=== PATIENT | male | born 1950 | race Caucasian/White ===

== ENCOUNTER 2018-11-08 18:59 | Emergency (ER) | payer MEDICARE ==
[2018-11-08] MEDS ORDERED: ONDANSETRON 4 MG/2 ML VIAL IVP ONE (19:00)
[2018-11-08] MEDS ORDERED: NS(*) 0.9% 1000 ML BAG 1,000 ML IV ONE ×3 (19:00→20:25)
[2018-11-08] MEDS ORDERED: fentaNYL CITR 100 MCG/2 ML AMP IVP ONE ×3 (19:00→22:45)
--- NOTE | 2018-11-08 19:11 | ER Report ---
History and Physical Time Seen By MD: 19:01 (SOTERO NESS TELECOMMUNICATIONS LINE INSTALLER-BC) HPI/ROS CHIEF COMPLAINT: Abdominal pain HISTORY OF PRESENT ILLNESS: This is a 68-year-old male presents to the emergency department via EMS for abdominal pain. 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 Estimated time down was 3 hours. Upon arrival EMS states that the patient was diffusely tender through the abdomen, they did attempt to give him pain medications he declined he did vomit, gave him 4 mg IV Zofran. Patient arrives ashen in color, holding his right upper quadrant, patient does interact and answer questions when prompted. He did consume some hard-boiled eggs around noon today. No bloody or black colored stools. No fevers or chills. No headaches or rashes. No chest pain. No shortness of breath. REVIEW OF SYSTEMS: Constitutional: No fever, no chills. Eyes: No discharge. ENT: No sore throat. Cardiovascular: No chest pain, no palpitations. Respiratory: No cough, no shortness of breath. Gastrointestinal: As above. Genitourinary: No hematuria. Musculoskeletal: No back pain. Skin: No rashes. Neurological: No headache. (SOTERO NESSP-) Allergies: Coded Allergies: No Known Drug Allergies (Unverified , 11/08/18) Home Meds Reported Medications Iron Polysaccharides Complex (FERREX 150) 150 Mg Capsule, 150 MG PO, CAPSULE 11/08/18 Lisinopril (LISINOPRIL) 10 Mg Tablet, 10 MG PO QDAY, TAB 11/08/18 Potassium Chloride (POTASSIUM CHLORIDE) 10 Meq Tab.er.prt, 10 MEQ PO QDAY 11/08/18 Furosemide (LASIX) 40 Mg Tablet, 1 TAB PO DAILY, TAB 11/08/18 Naproxen (NAPROXEN) 500 Mg Tablet, 500 MG PO BID, TAB 11/08/18 Metformin Hcl (METFORMIN HCL) 500 Mg Tablet, 2 TAB PO BID, TAB 11/08/18 Glimepiride (GLIMEPIRIDE) 2 Mg Tablet, 2 MG PO QDAY 11/08/18 Tamsulosin Hcl (TAMSULOSIN HCL) 0.4 Mg Cap.er.24h, 0.4 MG PO, CAP 11/08/18 Pioglitazone Hcl (ACTOS) 30 Mg Tablet, 30 MG PO QDAY 11/08/18 Past Medical/Surgical History The patient has a past medical and surgical history of type II diabetes, knee replacement, iron deficiency anemia, morbidly obese, hypertension. (SOTERO NESSP-BC) Reviewed Nurses Notes: Yes (SOTERO NESS TELECOMMUNICATIONS LINE INSTALLER-BC) Constitutional Vital Sign - Last 24 Hours 11/08/18 11/08/18 11/08/18 11/08/18 18:59 19:00 19:00 19:04 Temp 97.4 Pulse 101 101 104 Resp 50 16 72 B/P (MAP) ???/??? (6057) 79/65 Pulse Ox 99 93 O2 Delivery Nasal Cannula 11/08/18 11/08/18 11/08/18 11/08/18 19:09 19:10 19:10 19:13 Pulse 101 Resp 24 B/P (MAP) 71/48 (56) 70/45 (53) Pulse Ox 94 O2 Flow Rate 3.0 11/08/18 11/08/18 11/08/18 11/08/18 19:14 19:15 19:19 19:20 Pulse 118 ??? Resp 16 B/P (MAP) 80/42 (55) ???/??? (1704) Pulse Ox 69 11/08/18 11/08/18 11/08/18 11/08/18 19:24 19:29 19:30 19:34 Pulse ? 112 Resp 13 B/P (MAP) 135/59 (84) Pulse Ox 89 O2 Delivery Nasal Cannula O2 Flow Rate 2 11/08/18 11/08/18 11/08/18 11/08/18 19:39 19:40 19:44 19:49 Pulse 117 119 118 Resp 31 29 28 B/P (MAP) 113/86 (95) Pulse Ox 91 99 88 11/08/18 11/08/18 11/08/18 11/08/18 19:50 19:52 19:54 19:55 Pulse 116 Resp 20 B/P (MAP) 120/24 (56) 109/58 (75) 88/59 (69) Pulse Ox 94 12/15/18 11/08/18 11/08/18 11/08/18 19:59 20:00 20:04 20:05 Pulse 113 112 Resp 17 23 B/P (MAP) 115/62 (79) 107/52 (70) Pulse Ox 97 99 11/08/18 11/08/18 11/08/18 11/08/18 20:10 20:15 20:20 20:25 Pulse 117 112 Resp 16 13 B/P (MAP) 125/70 (88) 133/70 (91) 120/68 (85) 125/63 (83) Pulse Ox 97 96 11/08/18 11/08/18 11/08/18 11/08/18 20:30 20:35 20:40 20:55 Pulse 107 108 Resp 19 29 B/P (MAP) 112/67 (82) 129/57 (81) 137/56 (83) Pulse Ox 97 96 11/08/18 11/08/18 11/08/18 11/08/18 21:00 21:05 21:10 21:11 Pulse 106 107 Resp 28 27 B/P (MAP) 105/64 (78) 98/74 (82) 77/61 (66) 102/66 (78) Pulse Ox 98 96 11/08/18 11/08/18 11/08/18 11/08/18 21:15 21:20 21:25 21:30 Temp 99.1 Pulse 107 102 103 106 Resp 13 23 12 19 B/P (MAP) 115/91 (99) 113/79 (90) 123/59 (80) 82/55 (64) Pulse Ox 96 96 96 94 11/08/18 11/08/18 11/08/18 11/08/18 21:35 21:40 21:45 21:50 Pulse 100 102 103 107 Resp 32 34 31 B/P (MAP) 117/71 (86) 103/64 (77) 107/64 (78) ???/??? (5488) Pulse Ox 96 97 96 95 11/08/18 11/08/18 11/08/18 11/08/18 21:55 22:00 22:05 22:10 Temp 99.5 Pulse 105 104 108 112 B/P (MAP) 121/65 (83) 108/75 (86) 120/57 (78) 132/62 (85) Pulse Ox 96 97 97 94 11/08/18 11/08/18 11/08/18 11/08/18 22:15 22:20 22:25 22:30 Pulse 108 107 103 107 Resp 30 30 29 34 B/P (MAP) 112/87 (95) 124/68 (86) 128/77 (94) 106/74 (85) Pulse Ox 93 94 94 95 11/08/18 11/08/18 11/08/18 11/08/18 22:35 22:40 22:44 22:45 Pulse 109 112 110 Resp 52 38 27 B/P (MAP) 114/67 (83) 80/34 (49) 74/23 (40) Pulse Ox 95 92 95 11/08/18 22:47 B/P (MAP) 98/73 (81) (BUCKY HEARD DO) Physical Exam General Appearance: The patient is alert, has no immediate need for airway protection and no signs of toxicity, holding right upper quadrant, ashen in color. Eyes: Pupils equal and round no pallor or injection. ENT, Mouth: Mucous membranes are dry. Respiratory: There are no retractions, lungs are clear to auscultation. Cardiovascular: Regular rate and rhythm, no murmurs, clicks or rubs. Gastrointestinal: Abdomen is obese, painful to light palpation to the right upper and left upper quadrants and epigastrium, no pulsations, very distant and faint bowel sounds, no abdominal bruits. Neurological: Alert and oriented 4. Moving all x-ray studies. Following all commands. No focal neurologic deficits. Skin: Warm and dry, no rashes. Musculoskeletal: Neck is supple non tender. Extremities are nontender, nonswollen and have full range of motion. [ ] DIFFERENTIAL DIAGNOSIS: After history and physical exam differential diagnosis was considered for abdominal pain including but not limited to appendicitis, cholecystitis, AAA, ischemic bowel, gastritis and urinary tract infection. (SOTERO NESS-) Medical Decision Making Data Points Result Diagram: 11/08/18191011/08/181910 Laboratory Hematology Test 11/08/18 18:39 11/08/18 19:11 Urine Color Yellow Urine Clarity Clear Urine pH 5.0 pH (4.8-9.5) Urine Specific [place] 1.013 Urine Protein Negative mg/dL (NEGATIVE) Urine Glucose (UA) Negative mg/dL (NEGATIVE) Urine Ketones Negative mg/dL (NEGATIVE) Urine Blood Negative (NEGATIVE) Urine Nitrite Negative (NEGATIVE) Urine Bilirubin Negative (NEGATIVE) Urine Urobilinogen Negative mg/dL (0.2-1.9) Urine Leukocyte Esterase Negative (NEGATIVE) Urine RBC 1 /HPF (0-2/HPF) Urine WBC <1 /HPF (0-5/HPF) Urine Squamous Epithelial Cells None /LPF (NONE-FEW) Urine Bacteria Negative /HPF (NONE-FEW) Urine Mucus None /HPF (NONE-FEW) Red Blood Count 2.25 M/uL (4.00-5.60) Mean Corpuscular Volume 85.1 fL (80.0-96.0) Mean Corpuscular Hemoglobin 27.1 pg (26.0-33.0) Mean Corpuscular Hemoglobin Concent 31.9 g/dL (32.0-36.0) Red Cell Distribution Width 18.0 % (11.5-14.5) Mean Platelet Volume 10.9 fL (7.2-11.1) Neutrophils (%) (Auto) 82.2 % (39.4-72.5) Lymphocytes (%) (Auto) 12.6 % (17.6-49.6) Monocytes (%) (Auto) 4.3 % (4.1-12.4) Eosinophils (%) (Auto) 0.5 % (0.4-6.7) Basophils (%) (Auto) 0.4 % (0.3-1.4) Nucleated RBC Relative Count (auto) 0.0 /100WBC Neutrophils # (Auto) 6.8 K/uL (2.0-7.4) Lymphocytes # (Auto) 1.0 K/uL (1.3-3.6) Monocytes # (Auto) 0.4 K/uL (0.3-1.0) Eosinophils # (Auto) 0.0 K/uL (0.0-0.5) Basophils # (Auto) 0.0 K/uL (0.0-0.1) Nucleated RBC Absolute Count (auto) 0.00 K/uL Prothrombin Time 16.0 seconds (12.0-14.4) Prothromb Time International Ratio 1.27 Activated Partial Thromboplast Time 25 seconds (23-35) Sodium Level 135 mmol/L (137-145) Potassium Level 4.4 mmol/L (3.5-5.0) Chloride Level 107 mmol/L (98-107) Carbon Dioxide Level 13 mmol/L (22-30) Blood Urea Nitrogen 16 mg/dl (9-21) Creatinine 1.10 mg/dl (0.66-1.25) Glomerular Filtration Rate Calc > 60.0 Random Glucose 243 mg/dl (75-110) Lactate 10.2 mmol/L (0.7-2.1) Calcium Level 7.8 mg/dl (8.4-10.2) Total Bilirubin 0.4 mg/dl (0.2-1.3) Aspartate Amino Transf (AST/SGOT) 22 U/L (0-35) Alanine Aminotransferase (ALT/SGPT) 36 U/L (0-56) Alkaline Phosphatase 49 U/L (0-126) Troponin I < 0.012 ng/ml Total Protein 4.1 g/dl (6.3-8.2) Albumin 2.1 g/dl (3.5-5.0) Lipase 169 U/L (23-300) Helicobacter pylori IgG Antibody Positive (NEGATIVE) Chemistry Test 11/08/18 18:39 11/08/18 19:11 Urine Color Yellow Urine Clarity Clear Urine pH 5.0 pH (4.8-9.5) Urine Specific [place] 1.013 Urine Protein Negative mg/dL (NEGATIVE) Urine Glucose (UA) Negative mg/dL (NEGATIVE) Urine Ketones Negative mg/dL (NEGATIVE) Urine Blood Negative (NEGATIVE) Urine Nitrite Negative (NEGATIVE) Urine Bilirubin Negative (NEGATIVE) Urine Urobilinogen Negative mg/dL (0.2-1.9) Urine Leukocyte Esterase Negative (NEGATIVE) Urine RBC 1 /HPF (0-2/HPF) Urine WBC <1 /HPF (0-5/HPF) Urine Squamous Epithelial Cells None /LPF (NONE-FEW) Urine Bacteria Negative /HPF (NONE-FEW) Urine Mucus None /HPF (NONE-FEW) White Blood Count 8.3 k/uL (4.5-11.0) Red Blood Count 2.25 M/uL (4.00-5.60) Hemoglobin 6.1 g/dL (14.0-18.0) Hematocrit 19.2 % (42.0-52.0) Mean Corpuscular Volume 85.1 fL (80.0-96.0) Mean Corpuscular Hemoglobin 27.1 pg (26.0-33.0) Mean Corpuscular Hemoglobin Concent 31.9 g/dL (32.0-36.0) Red Cell Distribution Width 18.0 % (11.5-14.5) Platelet Count 124 K/uL (150-450) Mean Platelet Volume 10.9 fL (7.2-11.1) Neutrophils (%) (Auto) 82.2 % (39.4-72.5) Lymphocytes (%) (Auto) 12.6 % (17.6-49.6) Monocytes (%) (Auto) 4.3 % (4.1-12.4) Eosinophils (%) (Auto) 0.5 % (0.4-6.7) Basophils (%) (Auto) 0.4 % (0.3-1.4) Nucleated RBC Relative Count (auto) 0.0 /100WBC Neutrophils # (Auto) 6.8 K/uL (2.0-7.4) Lymphocytes # (Auto) 1.0 K/uL (1.3-3.6) Monocytes # (Auto) 0.4 K/uL (0.3-1.0) Eosinophils # (Auto) 0.0 K/uL (0.0-0.5) Basophils # (Auto) 0.0 K/uL (0.0-0.1) Nucleated RBC Absolute Count (auto) 0.00 K/uL Prothrombin Time 16.0 seconds (12.0-14.4) Prothromb Time International Ratio 1.27 Activated Partial Thromboplast Time 25 seconds (23-35) Glomerular Filtration Rate Calc > 60.0 Lactate 10.2 mmol/L (0.7-2.1) Calcium Level 7.8 mg/dl (8.4-10.2) Total Bilirubin 0.4 mg/dl (0.2-1.3) Aspartate Amino Transf (AST/SGOT) 22 U/L (0-35) Alanine Aminotransferase (ALT/SGPT) 36 U/L (0-56) Alkaline Phosphatase 49 U/L (0-126) Troponin I < 0.012 ng/ml Total Protein 4.1 g/dl (6.3-8.2) Albumin 2.1 g/dl (3.5-5.0) Lipase 169 U/L (23-300) Helicobacter pylori IgG Antibody Positive (NEGATIVE) Coagulation Test 11/08/18 19:11 Prothrombin Time 16.0 seconds Prothromb Time International Ratio 1.27 Activated Partial Thromboplast Time 25 seconds Urinalysis Test 11/08/18 18:39 Urine Color Yellow Urine Clarity Clear Urine pH 5.0 pH (4.8-9.5) Urine Specific [place] 1.013 Urine Protein Negative mg/dL (NEGATIVE) Urine Glucose (UA) Negative mg/dL (NEGATIVE) Urine Ketones Negative mg/dL (NEGATIVE) Urine Blood Negative (NEGATIVE) Urine Nitrite Negative (NEGATIVE) Urine Bilirubin Negative (NEGATIVE) Urine Urobilinogen Negative mg/dL (0.2-1.9) Urine Leukocyte Esterase Negative (NEGATIVE) Urine RBC 1 /HPF (0-2/HPF) Urine WBC <1 /HPF (0-5/HPF) Urine Squamous Epithelial Cells None /LPF (NONE-FEW) Urine Bacteria Negative /HPF (NONE-FEW) Urine Mucus None /HPF (NONE-FEW) (BUCKY HEARD DO) Microbiology Microbiology Date/Time Source Procedure Growth Status 11/08/18 20:04 Blood Peripheral Draw Blood Culture - Final Resulted 11/08/18 20:04 Blood Peripheral Draw Blood Culture - Preliminary Resulted 11/08/18 19:55 Blood Peripheral Draw Blood Culture - Preliminary NO GROWTH AFTER 1 DAY, REINCUBATED Resulted (BUCKY HEARD DO) EKG/Imaging EKG Interpretation 12 lead EKG: Rhythm: Sinus tachycardia, ventricular rate 101 bpm. [place]: normal QRS: normal ST segments: Peak T-wave in V2, flattening T wave in lead 3, no ST elevation or depression identified. No previous EKGs for comparison. Imaging Examination: CTA CHEST ABD PEL W CONT Comparison: None. History: Severe abdominal pain. Procedure: Arterial phase imaging of the chest, abdomen, and pelvis with 120 mL intravenous Isovue 370. Reconstruction of the source data set includes multiplanar 2D in the sagittal and coronal planes, and 3D reconstructed coronal slab MIP series. One of the following dose optimization techniques was utilized in the performance of this exam: Automated exposure control; adjustment of the mA and/or kV according to the patient's size; or use of an iterative reconstruction technique. Specific details can be referenced in the facility's radiology CT exam operational policy. Findings: CTA: Cardiac chambers: Negative. Thoracic aorta: Negative. Aortic arch vessels: Negative. Main pulmonary artery: Negative. Abdominal aorta: Minimal calcified atherosclerotic plaque along the distal abdominal aorta. Otherwise negative. Celiac artery, superior mesenteric artery, and inferior mesenteric artery: Negative. Renal arteries: Single main renal arteries bilaterally with minimal atherosclerotic plaque at the origin of the right main renal artery. Otherwise negative. Right iliac arteries: Minimal atherosclerosis along the internal iliac artery. Otherwise negative. Left iliac arteries: Negative. CT chest: Mediastinum: Mild coronary calcifications. No pericardial effusion. Lymph nodes: Negative. Lungs and airways: Mild atelectasis. Right lower lobe 3 mm nodule. No consolidation. No pneumothorax, edema, or effusion. Diaphragm: Negative. CT abdomen and pelvis: Liver: Nodular hepatic contour. 8.8 x 6.0 x 5.7 cm exophytic complex mass arising from the right hepatic dome. Separate right hepatic lobe 3.8 x 5.1 x 4.4 cm complex mass adjacent to the gallbladder fossa. Gallbladder and biliary system: Negative Spleen: Spleen size is normal. Pancreas: Negative. Adrenal glands: Negative. Kidneys and bladder: Right kidney exophytic 4.1 cm cyst. No renal mass or hydronephrosis. Vessels: Portal venous system is patent. A few small perigastric portosystemic collaterals are present. Bowel and mesentery: Stomach is within normal limits. No small bowel obstruction. Appendix is unremarkable. Minimal stool in the colon. No site of primary bowel or mesenteric inflammation. Pelvic organs: Negative. Lymph nodes: No adenopathy. Free air/free fluid: Small volume of simple appearing abdominopelvic ascites. No pneumoperitoneum. Abdominal wall and subcutaneous tissues: Negative. Osseous structures: Thoracolumbar spine multilevel mild degenerative change. No acute findings. IMPRESSION: 1. Minimal atherosclerosis. Otherwise negative thoracoabdominal aorta. 2. Cirrhosis and portal hypertension with a small volume of ascites. 3. Two large hepatic masses which are highly suspicious for malignancy. 4. Right lower lobe indeterminate 3 mm nodule. Given the above findings, CT follow-up is recommended. 5. Additional chronic/incidental findings as detailed above. Results were discussed with SOTERO NESS at 11/08/2018 8:03 PM. Report Dictated By: Abisai Ramon MD at 11/08/2018 7:51 PM Report E-Signed By: Abisai Ramon MD at 11/08/2018 8:05 PM [id number] (SOTERO NESS [facility]) ED Course/Re-evaluation Clinical Indication for ER IV: Hypotention, IV Access ED Course The patient was admitted to a room via EMS. A history and physical were o btained. Differential diagnoses were considered. Large-bore IVs were started, a CBC, CMP, troponin, lactate PTT and INR, lipase were obtained. The patient was hypotensive upon arrival, systolic blood pressure in the 70s, patient did respond to fluid resuscitation, norepinephrine was mixed and ready. Patient remained painful the right upper quadrant. Patient was given fentanyl for his pain. Zofran for his nausea.CBC showing rbc's 2.25, hemoglobin and hematocrit 6.1 and 19.2, left shift, chemistry showing sodium 135, CO2 13, glucose 243, lactate of 10.2, calcium 7.8, negative troponin and PT 16, INR 1.27, negative UA, positive H. pylori. Patient was afebrile. Patient was given 2 units of O- bl ood. Levothroid started at 8 mcg/m. Patient continues to have intermittent pain, additional dosing of fentanyl given. A CT of the abdomen and pelvis was negative for AAA, was noted to have cirrhosis and portal hypertension with a small volume of ascites, 2 large hepatic masses suspicious for malignancy, right lower lobe intermediate 3 mm nodule. I reviewed the CT results with the patient's, given the nature of his current state, hypotension his comorbidities as well as the concern for the masses we discussed transferring to another hospital, the patient was in agreement with this plan, I did speak with Dr. Ambriz from [facility] as noted below, she is accepted the patient in the hospitalist services. Patient will go to the ICU. The patient does understand that he will be going to the intensive care unit, he also understands at this time that he will likely be meeting with an oncologist within the next several days to discuss the masses on the liver and possible biopsies. The patient also gave me permission to speak with the patient's , I did speak with her obta ining her on his status, she does understand that he will be transferred to [facility]. Her number is noted below. 11/08/2018 8:50:12 pm I did speak with Dr. Ambriz the hospitalist on-call at [facility], we discussed the case, she has accepted the patient in the hospitalist services, the patient will be transferred down to [facility] via ground ambulance will be admitted to the intensive care unit. 11/08/2018 8:57:05 pm the patient's 's name is Mira Hurd phone #[phone]. Multiple attempts at peripheral access, Dr. Heard did attempt a left subclavi an, note his procedure note. Dr. Meyer was contacted, the general surgeon on- call, he was able to place a right IJ, see his note. Decision to Disposition Date: Nov 08, 2018 Decision to Disposition Time: 20:50 Critical Care Time I spent a total of 90 minutes of critical care time in obtaining history, performing a physical exam, bedside monitoring of interventions, collecting and interpreting tests and discussion with consultants but not including time spent performing procedures, with Dr. Heard. (SOTERO NESS [facility]) ED Course 2206 Procedure: Central line placement. After verbal informed consent from patient; with the risks explained to be bleeding, infection, and collapsed lung; maximal sterile barrier technique was uses including cap, gown, sterile gloves, large sheet, hand washing and chlorhexidine prep. The area anesthetized with 1% lidocaine. The left subclavian vein was punctured with a 19 gauge finder needle. A blood flash was noted, unsuccessful at passing the wire. There were no complications. CXR results: Appropriate line placement, and no pneumothorax. Xray was interpreted by myself. Radiologist interpretation is pending. The procedure was performed by myself. A call was placed to Dr. Felder, general surgery on-call, to assist with line placement. (BUCKY HEARD DO) Depart Departure Latest Vital Signs Vital Signs Date Time Temp Pulse Resp B/P (MAP) Pulse Ox O2 Delivery O2 Flow Rate FiO2 11/08/18 22:47 98/73 (81) 11/08/18 22:45 110 27 95 11/08/18 22:10 99.5 11/08/18 19:34 Nasal Cannula 2 (BUCKY HEARD DO) Impression: Primary Impression: Abdominal pain Additional Impressions: Liver masses Portal hypertension Cirrhosis Anemia Hypotension Nausea vomiting and diarrhea Condition: Critical Disposition: XFER TO [facility] ([facility]) Problem Qualifiers Primary Impression: Abdominal pain Abdominal location: right upper quadrant Qualified Codes: R10.11 - Right upper quadrant pain Additional Impressions: Cirrhosis Hepatic cirrhosis type: unspecified hepatic cirrhosis Ascites presence: with ascites Qualified Codes: K74.60 - Unspecified cirrhosis of liver; R18.8 - Other ascites Anemia Anemia type: iron deficiency Iron deficiency anemia type: unspecified iron deficiency Qualified Codes: D50.9 - Iron deficiency anemia, unspecified Hypotension Hypotension type: unspecified hypotension type Qualified Codes: I95.9 - Hypotension, unspecified SOTERO NESS TELECOMMUNICATIONS LINE INSTALLER-BC Nov 08, 2018 19:11 BUCKY HEARD DO Nov 08, 2018 22:25
[2018-11-08] MEDS ORDERED: LEVOPHED KIT (*) 1 IVSOL 1 KIT IV ONE (19:24)
[2018-11-08 19:26] LABS: PLATELET COUNT, AUTOMATED 124 K/uL (150-450)
[2018-11-08] MEDS ORDERED: NS(*) 0.9% 50 ML BAG 50 ML ONE (19:27)
[2018-11-08] MEDS ORDERED: IOPAMIDOL 76% 150 ML INFUS BTL 150 ML ONE (19:27)
[2018-11-08] MEDS ORDERED: POTA-53 PO (19:40)
[2018-11-08] MEDS ORDERED: NAPR500T31 PO (19:40)
[2018-11-08] MEDS ORDERED: FURO40TA35 PO (19:40)
[2018-11-08] MEDS ORDERED: LISI-362 PO (19:40)
[2018-11-08] MEDS ORDERED: METF-450 PO (19:40)
[2018-11-08] MEDS ORDERED: IRON150C14 PO (19:40)
[2018-11-08] MEDS ORDERED: GLIM2TAB43 PO (19:40)
[2018-11-08] MEDS ORDERED: PIOG30TA34 PO (19:40)
[2018-11-08] MEDS ORDERED: TAMS0.4C70 PO (19:40)
[2018-11-08 19:53] LABS: INR 1.27
--- NOTE | 2018-11-08 20:10 | RADIOLOGY IMAGING REPORT ---
FACILITY: [facility] PATIENT NAME: Rodney Hurd : 1950 MR: [id number] V: [id number] EXAM DATE: ORDERING PHYSICIAN: SOTERO NESS TECHNOLOGIST: Location: [facility] [place] Patient: Rodney Hurd : 1950 Visit/Account:[id number] Date of Sevice: 11/08/2018 Examination: CTA CHEST ABD PEL W CONT Comparison: None. History: Severe abdominal pain. Procedure: Arterial phase imaging of the chest, abdomen, and pelvis with 120 mL intravenous Isovue 37 0. Reconstruction of the source data set includes multiplanar 2D in the sagittal and coronal planes, and 3D reconstructed coronal slab MIP series. One of the following dose optimization techniques was utilized in the performance of this exam: Autom ated exposure control; adjustment of the mA and/or kV according to the patient's size; or use of an i terative reconstruction technique. Specific details can be referenced in the facility's radiology C T exam operational policy. Findings: CTA: Cardiac chambers: Negative. Thoracic aorta: Negative. Aortic arch vessels: Negative. Main pulmonary artery: Negative. Abdominal aorta: Minimal calcified atherosclerotic plaque along the distal abdominal aorta. Otherwise negative. Celiac artery, superior mesenteric artery, and inferior mesenteric artery: Negative. Renal arteries: Single main renal arteries bilaterally with minimal atherosclerotic plaque at the paramjit gin of the right main renal artery. Otherwise negative. Right iliac arteries: Minimal atherosclerosis along the internal iliac artery. Otherwise negative. Left iliac arteries: Negative. CT chest: Mediastinum: Mild coronary calcifications. No pericardial effusion. Lymph nodes: Negative. Lungs and airways: Mild atelectasis. Right lower lobe 3 mm nodule. No consolidation. No pneumothorax, edema, or effusion. Diaphragm: Negative. CT abdomen and pelvis: Liver: Nodular hepatic contour. 8.8 x 6.0 x 5.7 cm exophytic complex mass arising from the right hepa tic dome. Separate right hepatic lobe 3.8 x 5.1 x 4.4 cm complex mass adjacent to the gallbladder fos sa. Gallbladder and biliary system: Negative Spleen: Spleen size is normal. Pancreas: Negative. Adrenal glands: Negative. Kidneys and bladder: Right kidney exophytic 4.1 cm cyst. No renal mass or hydronephrosis. Vessels: Portal venous system is patent. A few small perigastric portosystemic collaterals are presen t. Bowel and mesentery: Stomach is within normal limits. No small bowel obstruction. Appendix is unremar kable. Minimal stool in the colon. No site of primary bowel or mesenteric inflammation. Pelvic organs: Negative. Lymph nodes: No adenopathy. Free air/free fluid: Small volume of simple appearing abdominopelvic ascites. No pneumoperitoneum. Abdominal wall and subcutaneous tissues: Negative. Osseous structures: Thoracolumbar spine multilevel mild degenerative change. No acute findings. IMPRESSION: 1. Minimal atherosclerosis. Otherwise negative thoracoabdominal aorta. 2. Cirrhosis and portal hypertension with a small volume of ascites. 3. Two large hepatic masses which are highly suspicious for malignancy. 4. Right lower lobe indeterminate 3 mm nodule. Given the above findings, CT follow-up is recommended. 5. Additional chronic/incidental findings as detailed above. Results were discussed with SOTERO NESS at 11/08/2018 8:03 PM. Report Dictated By: Abisai Ramon MD at 11/08/2018 7:51 PM Report E-Signed By: Abisai Ramon MD at 11/08/2018 8:05 PM [id number]
--- NOTE | 2018-11-08 20:54 | EKG ---
FACILITY: [facility] PATIENT NAME: ROMEL CLARK : [id number] MR: [id number] V: [id number] EXAM DATE: ORDERING PHYSICIAN: SOTERO NESS TECHNOLOGIST: ASHISH Test Reason : TRAUMA Blood Pressure : / mmHG Vent. Rate : 101 BPM Atrial Rate : 101 BPM P-R Int : 132 ms QRS Dur : 078 ms QT Int : 356 ms P-R-T Axes : 057 045 051 degrees QTc Int : 461 ms Sinus tachycardia Otherwise normal ECG No previous ECGs available Confirmed by Angel Donohue ([id number]) on 11/09/2018 6:04:41 AM Referred By: Confirmed By:Angel Garcia
[2018-11-08] MEDS ORDERED: NS(*) 0.9% 500 ML BAG 500 ML ONE (22:03)
[2018-11-08] MEDS ORDERED: KETAMINE HCL 200 MG/20 ML MDV IVP ONE (22:45)
[2018-11-08 22:47] VITALS: BP 98/73
--- NOTE | 2018-11-08 23:01 | Procedure Note ---
Central Line Procedure Note Indication for Central Line: IV access Consent Signed: Yes Central Line Lumen: Triple Central Line Procedure: Chlorhexidine Prep, Sterile Drapes Applied, Sterile Dressing Applied Central Line Position: R Internal Jugular Anesthesia Used: 1% Lidocaine CC's of Anesthesia: 4 Complications: None Central Line Post Position: Sutured, Confirmed Blood Return, Position Confirmed w/CXR JAYCE CASTRO MD Nov 08, 2018 23:01
--- NOTE | 2018-11-08 23:15 | RADIOLOGY IMAGING REPORT ---
FAC[place] [facility] [place]IENT NAME: Rodney Hurd : 1950 MR: [id number] V: [id number] EXAM DATE: ORDERING PHYSICIAN: BUCKY IRAHETA TECHNOLOGIST: Location: [facility] Patient: Rodney Hurd : 1950 Visit/Account:[id number] Date of Sevice: 11/08/2018 Exam type: CHEST SINGLE AP History: post central line attempt Comparison: CT scan same day. Findings: Right IJ central venous catheter has its tip in SVC. No appreciable pneumothorax. Lung volumes are low. Some mild atelectasis at the lung bases is noted but no focal infiltrate seen. Heart size is slightly prominent. The osseous structures are unremarkable IMPRESSION: 1. Right IJ central venous catheter with the tip in the SVC. No appreciable pneumothorax. 2. Low lung volumes with bibasilar atelectasis. Report Dictated By: Dario Croft MD at 11/08/2018 11:09 PM Report E-Signed By: Dario Croft MD at 11/08/2018 11:11 PM WSN:[id number]
== END 2018-11-08 23:45 | disposition short-term general hospital (02) ==
LOC: ER 19:01
DX: R10.11 Right upper quadrant pain (principal); D50.9 Iron deficiency anemia, unspecified; I95.9 Hypotension, unspecified; R16.0 Hepatomegaly, not elsewhere classified; R11.2 Nausea with vomiting, unspecified; R19.7 Diarrhea, unspecified; R18.8 Other ascites
CPT/HCPCS: 71045; 71275; 74174; 81001; 82105; 83605; 83690; 84484; 85025; 85610; 85730; 86677; 86850; 86900; 86901; 86920; 87040; 87077; 87186; 93005; 96361; 96374; 96375; 99291; 99292; J2405; J3010; J7030; J7050; P9016; Q9967; 82040; 82247; 82310; 82374; 82435; 82565; 82947; 84075; 84132; 84155; 84295; 84450; 84460; 84520